=== PATIENT | male | born 2000 | race Caucasian/White ===

== ENCOUNTER 2024-05-08 | Emergency (ER) | payer OTHER ==
[~2024-05-08] VITALS: Ht 193 cm; Wt 111.1 kg
[2024-05-08 00:15] VITALS: O2SAT 99
[2024-05-08] MEDS ORDERED: LIDO700A30 TP (00:46)
[2024-05-08] MEDS ORDERED: NAPR375T5 MT (00:46)
[2024-05-08 00:57] VITALS: BP 128/81; PULSE 65; RESP 18; TEMP 98.2
== END 2024-05-08 00:57 | disposition home or self-care (01) ==
LOC: ER
DX: M54.40 Lumbago with sciatica, unspecified side (principal); E11.9 Type 2 diabetes mellitus without complications; F19.90 Other psychoactive substance use, unspecified, uncomplicated
CPT/HCPCS: 82962; 99282